=== PATIENT | female | born 1970 | race Caucasian/White ===

== ENCOUNTER 2016-09-12 13:17 | Emergency (ER) | payer BC, OTHER ==
[2016-09-12 13:56] VITALS: BP 134/86
[2016-09-12] MEDS ORDERED: Ibuprofen TAB* 600 MG PO ONE (14:49)
--- NOTE | 2016-09-12 14:56 | UC ---
Lower Extremity/Ankle HPI - HPI Summary HPI Summary: Patient tripped on a ball and rolled ankle. she is a business education teacher. large amount of swelling ROm is full painful with pronation. - History of Current Complaint Chief Complaint: UCLowerExtremity Stated Complaint: LEFT ANKLE INJURY Time Seen by Provider: 09/12/16 14:14 Hx Obtained From: Patient Hx Last Menstrual Period: 12/24/14 ?: No Onset/Duration: Sudden Onset, Lasting Hours Severity Initially: Severe Severity Currently: Moderate Pain Intensity: 6 Pain Scale Used: 0-10 Numeric Aggravating Factor(s): Standing, Ambulation Alleviating Factor(s): Rest, Ice Able to Bear Weight: Yes Related History: Occupational Injury - Risk Factors Gout Risk Factors: Negative DVT Risk Factors: Negative - Allergies/Home Medications Allergies/Adverse Reactions: Allergies Allergy/AdvReac Type Severity Reaction Status Date / Time Erythromycin Allergy Rash Verified 09/12/16 13:49 Home Medications: Home Medications Esomeprazole(NF) [NexIUM(NF)] 40 mg PO DAILY 09/12/16 [History Confirmed ] PMH/Surg Hx/FS Hx/Imm Hx Previously Healthy: Yes Endocrine History Of: Denies: Diabetes, Thyroid Disease, Hyperthyroidism, Hypothyroidism, Dyslipidemia Cardiovascular History Of: Denies: Cardiac Disorders, Hypertension, Pacemaker/ICD, Myocardial Infarction , Congestive Heart Failure, Atrial Fibrillation, Deep Vein Thrombosis, Bleeding Disorders Respiratory History Of: Reports: Asthma - no inhaler taken at this time. Denies: COPD GI/ History Of: Denies: Gastroesophageal Reflux, Ulcer, Gastrointestinal Bleed, Gall Bladder Disease, Kidney Stones, Diverticulitis, Renal Disease, Urosepsis Neurological History Of: Denies: TIA, CVA, Dementia, Seizures, Migraine Psychological History Of: Reports: Anxiety, Depression, Bipolar Disorder Denies: Schizophrenia, Post Traumatic Stress Disorder Cancer History Of: Denies: Lung Cancer, Colorectal Cancer, Breast Cancer, Prostate Cancer, Cervical Cancer Other History Of: Negative For: HIV, Hepatitis B, Hepatitis C, Anticoagulant Therapy - Surgical History Surgical History: Yes Surgery Procedure, Year, and Place: endometrial ablation 2011, - Family History Known Family History: Negative: Cardiac Disease, Hypertension - Social History Alcohol Use: Occasionally Substance Use Type: None Smoking Status (MU): Never Smoked Tobacco - Immunization History Most Recent Influenza Vaccination: Fall 2013 Review of Systems Constitutional: Negative Skin: Negative Eyes: Negative ENT: Negative Respiratory: Negative Cardiovascular: Negative Gastrointestinal: Negative Genitourinary: Negative Motor: Negative Neurovascular: Negative Musculoskeletal: Arthralgia, Edema Neurological: Negative Psychological: Negative All Other Systems Reviewed And Are Negative: Yes Physical Exam Triage Information Reviewed: Yes Appearance: Well-Appearing, Pain Distress, Obese Vital Signs: Initial Vital Signs Temp 97.9 F 09/12/16 13:51 Pulse 89 09/12/16 13:51 Resp 18 09/12/16 13:51 BP 134/86 09/12/16 13:51 Pulse Ox 98 09/12/16 13:51 Vital Signs Reviewed: Yes Eye Exam: Normal Eyes: Positive: Conjunctiva Clear ENT Exam: Normal ENT: Positive: Normal ENT inspection, Pharynx normal, TMs normal Dental Exam: Normal Neck exam: Normal Neck: Positive: Supple, Nontender, No Lymphadenopathy Respiratory Exam: Normal Respiratory: Positive: Chest non-tender, Lungs clear, Normal breath sounds Cardiovascular Exam: Normal Cardiovascular: Positive: RRR, No Murmur, Pulses Normal Abdominal Exam: Normal Abdomen Description: Positive: Nontender, No Organomegaly, Soft Bowel Sounds: Positive: Present Musculoskeletal: Positive: Strength Limited @ - left ankle, Edema @ Neurological Exam: Normal Neurological: Positive: Alert, Muscle Tone Normal Psychological Exam: Normal Skin Exam: Normal Lower Extremity Course/Dx - Course Course Of Treatment: hisotry obtained, exam performed, anai wrap applied, gel splint and crutches refused. ibuprofen given. - Differential Dx/Diagnosis Differential Diagnosis/HQI/PQRI: Contusion, Dislocation, Sprain, Strain Provider Diagnoses: ankle sprain, left. abnormal gait Discharge - Discharge Plan Condition: Stable Disposition: AGAINST MEDICAL ADVICE Patient Education Materials: Ankle Sprain (ED) Referrals: Sherry Enriquez MD [Primary Care Provider] - Additional Instructions: Rest Ice compress with anai wrap and elevate. Use the ice 20 minute on every hour for the two days. Elevated at rest. Follow up if pain does not improve over the next week. you have significant swelling, and no sensitivity over the bones. follow up as needed.
== END 2016-09-12 15:09 | disposition home or self-care (01) ==
LOC: UCCORT 13:17
DX: S93.402A Sprain of unspecified ligament of left ankle, initial encounter (principal); X50.1XXA Overexertion from prolonged static or awkward postures, initial encounter; Y93.89 Activity, other specified; Y92.39 Other specified sports and athletic area as the place of occurrence of the external cause; Y99.0 Civilian activity done for income or pay; Z88.1 Allergy status to other antibiotic agents; R26.9 Unspecified abnormalities of gait and mobility
CPT/HCPCS: 99212; A9270-GY; G0463

== ENCOUNTER 2017-07-20 12:57 | Emergency (ER) | payer BC, OTHER ==
[2017-07-20 13:45] VITALS: BP 125/84
--- NOTE | 2017-07-20 13:45 | UC ---
Skin Complaint HPI - HPI Summary HPI Summary: 47 year old female presents with complains of ring finger paronychia. - History of Current Complaint Time Seen by Provider: 07/20/17 13:45 Stated Complaint: RIGHT RING FINGER SKIN CONCERN Hx Obtained From: Patient Hx Last Menstrual Period: n/a ablation Onset/Duration: Sudden Onset Skin Exposure Onset/Duration: Minutes Ago Onset Severity: Moderate Current Severity: Moderate - Allergy/Home Medications Allergies/Adverse Reactions: Allergies Allergy/AdvReac Type Severity Reaction Status Date / Time Erythromycin Allergy Rash Verified 07/20/17 13:45 Review of Systems Constitutional: Negative Skin: Other - right ring finger paronychia Eyes: Negative ENT: Negative Respiratory: Negative Cardiovascular: Negative Gastrointestinal: Negative Genitourinary: Negative Motor: Negative Neurovascular: Negative Musculoskeletal: Negative Neurological: Negative Psychological: Negative All Other Systems Reviewed And Are Negative: Yes PMH/Surg Hx/FS Hx/Imm Hx Previously Healthy: Yes Other History Of: Negative For: HIV, Hepatitis B, Hepatitis C, Anticoagulant Therapy - Surgical History Surgical History: Yes Surgery Procedure, Year, and Place: endometrial ablation 2011, - Family History Known Family History: Negative: Cardiac Disease, Hypertension - Social History Alcohol Use: Occasionally Substance Use Type: None Smoking Status (MU): Never Smoked Tobacco - Immunization History Most Recent Influenza Vaccination: yes 05/2017 Physical Exam Triage Information Reviewed: Yes Vital Signs: Initial Vital Signs Temp 36.8 C 07/20/17 13:41 Pulse 77 07/20/17 13:41 Resp 16 07/20/17 13:41 BP 125/84 07/20/17 13:41 Pulse Ox 100 07/20/17 13:41 Vital Signs Reviewed: Yes Eye Exam: Normal ENT Exam: Normal Dental Exam: Normal Neck exam: Normal Neck: Positive: 1 Respiratory Exam: Normal Cardiovascular Exam: Normal Abdominal Exam: Normal Musculoskeletal Exam: Normal Neurological Exam: Normal Psychological Exam: Normal Skin: Positive: Other - right ring finger paronychia Course/Dx - Course Course Of Treatment: release of purulent discharge from right ring finger with # 11 blade. culture sent. - Diagnoses Provider Diagnoses: right ring finger paronychia Discharge - Discharge Plan Condition: Stable Disposition: HOME Prescriptions: Sulfamethox/Trimethoprim DS* [Bactrim DS 800/160 TAB*] 1 tab PO BID #14 tab Patient Education Materials: Paronychia (ED) Referrals: Sherry Enriquez MD [Primary Care Provider] -
== END 2017-07-20 14:21 | disposition home or self-care (01) ==
LOC: UCCORT 12:57
DX: L03.011 Cellulitis of right finger (principal); B95.61 Methicillin susceptible Staphylococcus aureus infection as the cause of diseases classified elsewhere; Z88.1 Allergy status to other antibiotic agents
CPT/HCPCS: 10060; 87070; 87077; 87186; 87205; 87640; 87641; 99212; G0463

== ENCOUNTER 2017-07-26 14:23 | Emergency (ER) | payer BC ==
[2017-07-26 16:21] VITALS: BP 131/86
--- NOTE | 2017-07-26 17:32 | UC ---
Skin Complaint HPI - HPI Summary HPI Summary: SEEN 07/20/17 FOR PARONYCHIA. PRESCRIBED BACTRIM BUT STOPPED TAKING IT AFTER THREE DAYS DUE TO STOMACH UPSET. INFECTION DIMINISHED, BUT ARE IS STILL RED AND TENDER. NO DISCHARGE PRESENTLY. LAST TETANUS 2 YRS AGO. - History of Current Complaint Chief Complaint: UCSkin Time Seen by Provider: 07/26/17 16:24 Stated Complaint: RE-CK, RIGHT RING FINGER Hx Obtained From: Patient Hx Last Menstrual Period: unknown, ablation Onset/Duration: Gradual Onset, Lasting Weeks Skin Exposure Onset/Duration: Weeks Ago Onset Severity: Moderate Current Severity: Mild Pain Intensity: 6 Pain Scale Used: 0-10 Numeric Location: Discrete Character: Swelling, Redness, Painful Aggravating Factor(s): Touch Alleviating Factor(s): Nothing Associated Signs & Symptoms: Positive: Tenderness, Red Streaks. Negative: Fever , Chills, Rash, Drainage, Bruising Related History: Trauma - Allergy/Home Medications Allergies/Adverse Reactions: Allergies Allergy/AdvReac Type Severity Reaction Status Date / Time Erythromycin Allergy Rash Verified 07/26/17 16:20 Review of Systems Constitutional: Negative Skin: Other - PARONYCHIA RIGHT 4TH FINGER Eyes: Negative ENT: Negative Respiratory: Negative Cardiovascular: Negative Gastrointestinal: Negative Genitourinary: Negative Motor: Negative Neurovascular: Negative Musculoskeletal: Negative Neurological: Negative Psychological: Negative Is Patient Immunocompromised?: No All Other Systems Reviewed And Are Negative: Yes PMH/Surg Hx/FS Hx/Imm Hx Previously Healthy: Yes Other History Of: Negative For: HIV, Hepatitis B, Hepatitis C, Anticoagulant Therapy - Surgical History Surgical History: Yes Surgery Procedure, Year, and Place: endometrial ablation 2011, - Family History Known Family History: Negative: Cardiac Disease, Hypertension, Diabetes - Social History Occupation: Employed Full-time Lives: With Family Alcohol Use: Occasionally Substance Use Type: None Smoking Status (MU): Never Smoked Tobacco - Immunization History Most Recent Influenza Vaccination: yes 05/2017 Physical Exam Triage Information Reviewed: Yes Appearance: Well-Appearing, No Pain Distress, Well-Nourished Vital Signs: Initial Vital Signs Temp 97.9 F 07/26/17 16:16 Pulse 73 07/26/17 16:16 Resp 16 07/26/17 16:16 BP 131/86 07/26/17 16:16 Pulse Ox 97 07/26/17 16:16 Eye Exam: Normal Eyes: Positive: Conjunctiva Clear ENT Exam: Normal ENT: Positive: Normal ENT inspection Dental Exam: Normal Neck exam: Normal Neck: Positive: Supple, Nontender, No Lymphadenopathy Respiratory Exam: Normal Respiratory: Positive: Chest non-tender, Lungs clear, Normal breath sounds, No respiratory distress, No accessory muscle use Cardiovascular Exam: Normal Cardiovascular: Positive: RRR, No Murmur, Pulses Normal Abdominal Exam: Normal Musculoskeletal Exam: Normal Musculoskeletal: Positive: Strength Intact, ROM Intact, No Edema Neurological Exam: Normal Psychological Exam: Normal Skin: Positive: Other - 1CM X 0.5 CM ERYTHEMA SURROUNDING SITE OF PREVIOUS PARONYCHIA INCISION AND DRAINAGE. NO FLUCTUANT AREA NOTED Course/Dx - Differential Diagnoses - Skin Complaint Differential Diagnoses: Abscess, Cellulitis - Diagnoses Provider Diagnoses: CELLULITIS RIGHT DISTAL 4TH FINGER (AT PARONYCHIA I&D SITE) Discharge - Discharge Plan Condition: Stable Disposition: HOME Prescriptions: Cephalexin CAP* [Keflex CAP*] 500 mg PO QID #28 cap Patient Education Materials: Paronychia (ED) Referrals: Sherry Enriquez MD [Primary Care Provider] -
== END 2017-07-26 16:40 | disposition home or self-care (01) ==
LOC: UCCORT 14:23
DX: L03.011 Cellulitis of right finger (principal); Z88.1 Allergy status to other antibiotic agents
CPT/HCPCS: 99212; G0463

== ENCOUNTER 2017-10-08 14:43 | Emergency (ER) | payer BC, OTHER ==
[2017-10-08 18:22] VITALS: BP 143/79
--- NOTE | 2017-10-08 19:04 | UC ---
FLU HPI - HPI Summary HPI Summary: 47 y/o female with 1 1/2 month history of sinus congestions, tenderness, chills at night, no fevers measured at home. no improvement, symptoms worsening over time. USing salt water nasal sprays without benefit. no recent abx use. c/ o painful throat, swallowing x several days. - History of Current Complaint Hx Obtained From: Patient Hx Last Menstrual Period: unknown, ablation ?: No Onset/Duration: Gradual Onset, Lasting Weeks Severity Currently: Mild Severity Initially: Mild Pain Intensity: 0 Pain Scale Used: 0-10 Numeric <Xiomara Garcia - Last Filed: 10/08/17 19:31> <Dinorah Enriquez - Last Filed: 10/08/17 20:02> - History of Current Complaint Chief Complaint: UCGeneralIllness Stated Complaint: CONGESTION Time Seen by Provider: 10/08/17 19:04 - Allergy/Home Medications Allergies/Adverse Reactions: Allergies Allergy/AdvReac Type Severity Reaction Status Date / Time erythromycin base Allergy Rash Verified 10/08/17 18:20 Home Medications: Home Medications QUEtiapine TAB* [Seroquel TAB*] 300 mg PO DAILY 10/08/17 [History Confirmed ] PMH/Surg Hx/FS Hx/Imm Hx Previously Healthy: Yes Other History Of: Negative For: HIV, Hepatitis B, Hepatitis C, Anticoagulant Therapy - Surgical History Surgical History: Yes Surgery Procedure, Year, and Place: endometrial ablation 2011, - Family History Known Family History: Negative: Cardiac Disease, Hypertension, Diabetes - Social History Alcohol Use: Rare Substance Use Type: None Smoking Status (MU): Never Smoked Tobacco - Immunization History Most Recent Influenza Vaccination: yes 05/2017 <Xiomara Garcia - Last Filed: 10/08/17 19:31> Review of Systems Constitutional: Chills, Fatigue ENT: Sinus Congestion, Sinus Pain/Tenderness Is Patient Immunocompromised?: No All Other Systems Reviewed And Are Negative: Yes <Xiomara Garcia - Last Filed: 10/08/17 19:31> Physical Exam Triage Information Reviewed: Yes Appearance: Well-Appearing, No Pain Distress, Well-Nourished Vital Signs: Initial Vital Signs Temp 97.9 F 10/08/17 18:17 Pulse 93 10/08/17 18:17 Resp 16 10/08/17 18:17 BP 143/79 10/08/17 18:17 Pulse Ox 100 10/08/17 18:17 Vital Signs Reviewed: Yes ENT: Positive: Pharynx normal, Nasal congestion, TMs normal, Sinus tenderness, Uvula midline. Negative: Nasal drainage, TM bulging, TM dull, TM red, Tonsillar swelling, Tonsillar exudate Neck: Positive: Supple, Nontender, No Lymphadenopathy. Negative: Nuchal Rigidity Respiratory: Positive: Lungs clear, Normal breath sounds, No respiratory distress, No accessory muscle use Cardiovascular: Positive: RRR, No Murmur, Pulses Normal <Xiomara Garcia - Last Filed: 10/08/17 19:31> Vital Signs: Initial Vital Signs Temp 97.9 F 10/08/17 18:17 Pulse 93 10/08/17 18:17 Resp 16 10/08/17 18:17 BP 143/79 10/08/17 18:17 Pulse Ox 100 10/08/17 18:17 <Dinorah Enriquez - Last Filed: 10/08/17 20:02> Flu Course/Dx - Course Course Of Treatment: rapid flu negative abx given, follow up with PCP - Differential Dx/Diagnosis Differential Diagnosis/HQI/PQRI: Bronchitis, Influenza Provider Diagnoses: sinusitis <Xiomara Garcia - Last Filed: 10/08/17 19:31> Discharge <Xiomara Garcia - Last Filed: 10/08/17 19:31> <Dinorah Enriquez - Last Filed: 10/08/17 20:02> - Discharge Plan Condition: Fair Disposition: HOME Prescriptions: Amoxicillin PO (*) [Amoxicillin 875 MG (*)] 875 mg PO BID #20 tab Patient Education Materials: Sinusitis (ED) Referrals: Sherry Enriquez MD [Primary Care Provider] - Additional Instructions: - Increase fluid intake - Antibiotics as directed - Follow up with primary within 5-7 days if no improvement - GO to ER with fever >104, increased pain, tenderness. Attestation Statement User Type: Provider - I was available for consult. This patient was seen by the RAGHAV. The patient was not presented to, seen by, or examined by me. Apj <Dinorah Enriquez - Last Filed: 10/08/17 20:02>
== END 2017-10-08 19:33 | disposition home or self-care (01) ==
LOC: UCCORT 14:43
DX: J32.9 Chronic sinusitis, unspecified (principal)
CPT/HCPCS: 87651; 99212; G0463

== ENCOUNTER 2018-06-20 14:25 | Emergency (ER) | payer BC, OTHER ==
--- OUTSIDE RECORDS SUMMARY | 2018-06-20 14:38 | XMS REPORT ---
:1970 External Reference #:[id number] Author Organization [facility] Address [address] [place] [address] Phone [phone] Care Team Providers Name Role Phone Sherry Enriquez MD Care Team Information District Administrator Unavailable Sherry Enriquez MD Primary Care Physician Unavailable Payers Type Date Identification Numbers Payment Provider Subscriber Commercial Policy Number: [id number] Jamar Baltazar PayID: [id number] [address] [address] [place] [address] Workers Compensation Group Name: [employer] Jessica Baltazar Compensation PayID: [id number] [place] [address] Problems Date Description Provider Status Onset: 05/26/2018 Unspecified external cause status Rory Cronin MDFACS Active Onset: 05/26/[address] or not applicable Rory Cronin MD, FACS Active Onset: 05/26/2018 Activity, unspecified Rory Cronin MD,FACS Active Onset: 05/26/2018 Superficial injury of trunk without Rory Cronin MD, FACS Active infection Family History Date Family Member(s) Problem(s) Comments Father Hypercholesterolemia Mother Breast Cancer Social History Type Date Description Comments Marital Status Single Lives With Female Partner Diet Patient follows no dietary restrictions 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 Cigarette Use Never Smoked Cigarettes ETOH Use Rarely consumes alcohol Smoking Patient denies history of smoking Recreational Drug Use Denies Drug Use Daily Caffeine Patient consumes minimal amounts of caffeine Allergies, Adverse Reactions, Alerts Date Description Reaction Status Severity Comments 05/19/2018 Erythromycin active Medications Medication Date Status Form Strength Qnty SIG Indications Ordering Provider [place] 00/00/ Active Capsules 300mg 1 tab by Unknown Carbonate 0000 mouth 3 times a day Zyrtec Allergy / Active Capsules 10mg 1 by mouth Unknown 0000 every day Nexium 00/00/ Active Capsules 40mg 1 by mouth Unknown 0000 DR every day Seroquel / Active Tablets 300mg take one Unknown 0000 tablet by twice daily Mupirocin / Hx Ointment 2% apply to Unknown 0000 - affected 05/26/ area three 2018 times a day Alclometasone / Hx Cream 0.05% apply on Unknown Dipropionate 0000 - affected 05/26/ area of 2018 face two times a day for 7-10 days Esomeprazole / Hx Capsules 40mg 1 tab every Unknown Magnesium 0000 - DR day every 05/26/ 2018 Nystatin-Triamc / Hx Cream 416999-0.1 apply to Unknown inolone 0000 - Unit/GM-% affected 05/26/ area of the 2018 buttocks twice daily for 7-10 days. . Ventolin HFA / Hx Aerosol 108(90Base take 2 Unknown 0000 - ) mcg/Act puffs every 05/26/ 6 hours as 2018 needed for shortness of breath. Quetiapine / Hx Tablets 100mg 1 at Unknown Fumarate 0000 - bedtime 05/26/ with 25mg 2018 tab Immunizations CPT Code Status Date Vaccine Lot # [id number] Given 06/15/2010 flu vaccination 66197 Given 06/17/2008 flu vaccination Vital Signs Date Vital Result Comment 06/11/2018 BP Systolic 131 mmHg BP Diastolic 91 mmHg Heart Rate 99 /min Respiratory Rate 18 /min Height 65 inches 5'5" Weight 252.00 lb BMI (Body Mass Index) 41.9 kg/m2 BSA (Body Surface Area) 2.18 m2 [place] body weight in kilograms 57 O2 % BldC Oximetry 97 % 05/26/2018 BP Systolic Sitting Right Arm 141 mmHg BP Diastolic Sitting Right Arm 77 mmHg Heart Rate 95 /min Respiratory Rate 14 /min Height 65 inches 5'5" Weight 247.38 lb BMI (Body Mass Index) 41.2 kg/m2 BSA (Body Surface Area) 2.17 m2 [place] body weight in kilograms 57 O2 % BldC Oximetry 95 % Results Description No Information Procedures Date CPT Code Description Status 10/18/2016 22558 Echocardiogram Complete Completed 10/18/2016 16836 Event Monitor Inter/Review Only Completed 06/17/2012 78013 Anesthesia, Hysteroscopy, Hystersalpingography Completed 06/11/2012 55373 EKG Interpretation And Report Only Completed 11/15/201143989 Anesthesia, Hysteroscopy, Hystersalpingography Completed 05/16/201180935 Finance Charge Completed 04/11/201194308 Finance Charge Completed 03/07/2011 Finance Charge Completed 01/31/2011 Finance Charge Completed 06/17/2008 38895 EKG-Tracing And Report Completed 01/08/2008 19390 Pressurized/Non-Pressurized Inhalation Treatment,Acute Completed Obstructio 12/24/2007 86608 Pressurized/Non-Pressurized Inhalation Treatment,Acute Completed Obstructio 07/29/2007 17267 Application short arm splint forearm to wrist static Completed Encounters Type Date Location Provider CPT E/M Dx Office Visit 05/26/2018 10:00a Surgical Office Rory Cronin, 86201 S20.101A ,FACS X58.xxxA Y93.9 Y92.9 Y99.9 Plan of Care 06/11/2018 - Rory Cronin MD,[id number] Unsp superficial injuries of breast , right breast, initComments:right breast skin infection/lesion, received antibiotic therapy, no complete healing yet, area continue to decrease in size, ultrasound of the right breast with no significant pathology. patient is notinterested in performing excisional biopsy at this point as the area continues to decrease, she willlet us know if it is persistent in month or then we can see her and remove them. as these look like epidermal cysts of the skin of the right breast. RTC prn
[2018-06-20 14:58] VITALS: BP 135/77
[2018-06-20] MEDS ORDERED: Ondansetron ODT TAB* 4 MG PO ONE (16:04)
[2018-06-20] MEDS ORDERED: Acetaminophen TAB* 325 MG PO ONE (16:05)
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
--- NOTE | 2018-06-20 16:39 | RAD ---
HISTORY: INJURY -VISUAL LOSSSX 1-2 MIN AND VERNON WITH NAUSEA COMPARISONS: None TECHNIQUE: Multiple contiguous axial CT scans were obtained of the head without intravenous contrast. FINDINGS: HEMORRHAGE/INFARCT: There is no hemorrhage or acute infarct. MASSES/SHIFT: There is no mass or shift. EXTRA-AXIAL SPACES: There are no extra-axial fluid collections. SULCI AND VENTRICLES: The sulci and ventricles are normal in size and position for the patient's stated age. CEREBRUM: There are no focal parenchymal abnormalities. BRAINSTEM: There are no focal parenchymal abnormalities. CEREBELLUM: There are no focal parenchymal abnormalities. VESSELS: The vessels are grossly normal. PARANASAL SINUSES: The paranasal sinuses are clear. ORBITS: The orbits are unremarkable. BONES AND SOFT TISSUE: No bone or soft tissue abnormalities are noted. OTHER: None IMPRESSION: NO ACUTE INTRACRANIAL PATHOLOGY.
== END 2018-06-20 16:53 | disposition home or self-care (01) ==
LOC: UCCORT 14:25
DX: S06.0X0A Concussion without loss of consciousness, initial encounter (principal); S46.912A Strain of unspecified muscle, fascia and tendon at shoulder and upper arm level, left arm, initial encounter; F31.9 Bipolar disorder, unspecified; W21.09XA Struck by other hit or thrown ball, initial encounter; Y92.9 Unspecified place or not applicable; Z88.1 Allergy status to other antibiotic agents
CPT/HCPCS: 70450; 99212; A9270-GY; G0463